=== PATIENT | female | born 1950 | race Caucasian/White ===

== ENCOUNTER 2024-08-12 06:48 | Inpatient (IN) | payer OTHER ==
[~2024-08-12] VITALS: Ht 227.3 cm; Wt 93.5 kg
[~2024-08-12 06:48] MED LIST: PERCOT PO; TIZA4CAP PO
[2024-08-12] MEDS: ROPIVACAINE 0.5% (5MG/ML) 20ML AMPULE IJ ONE (07:45)
[2024-08-12] MEDS ORDERED: KETAMINE 50mg/ML 1ml syringe ONE (08:36)
[2024-08-12] MEDS ORDERED: MIDAZOLAM HCL 2MG/2ML 2ml VIAL (1mg/ml) ONE (08:36)
[2024-08-12] MEDS ORDERED: fentaNYL CITRATE 100 MCG/2 ML VL ONE (08:36)
[2024-08-12] MEDS: TETRACAINE 1% INJ 2 ML VIAL IJ ONE (08:43)
[2024-08-12] MEDS: ceFAZolin 2 GM/D5W100ml 100 ML IV ONE (08:50)
[2024-08-12] MEDS: TRANEXAMIC ACID 20 ML ONE (08:52)
[2024-08-12] MEDS: MINERAL OIL TOPICAL 10ml TOP ONE (09:30)
[2024-08-12] MEDS: CEFEPIME 1GM/ 50ML 50 ML IV ONE (09:45)
[2024-08-12] MEDS: ONDANSETRON HCL 4 MG/2 ML VIAL IV ONE ×2 (10:30→12:30)
[2024-08-12] MEDS ORDERED: HYDROmorphone HCL 2 MG/ML VL/or syr IV PRN ×2 (10:30)
[2024-08-12] MEDS: VANCOMYCIN HCL 1000 MG VL ONE (10:33)
[2024-08-12] MEDS ORDERED: ONDANSETRON HCL 4 MG/2 ML VIAL IV PRN (10:45)
[2024-08-12] MEDS ORDERED: PROPOFOL 10 MG/ML 20 ML IV ONE (10:49)
[2024-08-12] MEDS ORDERED: ONDANSETRON HCL 4 MG/2 ML VIAL ONE (10:56)
[2024-08-12 11:12] VITALS: PULSE 83; RESP 10; O2SAT 94
[2024-08-12] MEDS ORDERED: ceFAZolin 2 GM/D5W50ml 50 ML IV SCH (14:00)
[2024-08-12] MEDS: KETOROLAC TROMETH 30 MG/ML 1ML VIAL IV ONE (14:22)
[2024-08-12] MEDS: oxyCODONE ER 10 MG TAB PO ONE (15:28)
[2024-08-12] MEDS: ceFAZolin 1GM/50ML 100 ML IV ONE (16:24)
[2024-08-12] MEDS: ceFAZolin 2 GM/D5W50ml 50 ML IV SCH (16:26)
[2024-08-12] MEDS: SODIUM CHLORIDE 0.9% 1,000 ML IV SCH (19:30)
[2024-08-12 20:00] VITALS: RESP 18; O2SAT 92
[2024-08-12] MEDS: oxyCODONE HCL 5MG TAB PO PRN (21:25)
[2024-08-12] MEDS: PREGABALIN 25 MG CAP PO SCH (21:26)
[2024-08-12] MEDS: ACETAMINOPHEN 325 MG TAB PO SCH (23:39)
[2024-08-12] MEDS: KETOROLAC TROMETH 30 MG/ML 1ML VIAL IV SCH (23:41)
[2024-08-13] VITALS (8 sets, daily range): BP systolic 107–138; BP diastolic 45–73; PULSE 61–86; RESP 17–20; TEMP 97–98.7; O2SAT 91–100
[2024-08-13 07:56] LABS: Basophils # (auto) 0 10 ^3/uL (0-0.2); Basophils % (auto) 0.2 % (0.0-2.0); Eosinophils # (auto) 0 10 ^3/uL (0-0.8); Eosinophils % (auto) 0.3 % (0.0-7.0); Hematocrit 33.6 % (36.0-46.0); Hemoglobin 11.8 g/dL (12.2-16.2); Lymphocytes # (auto) 0.9 10 ^3/uL (0.4-5.4); Lymphocytes % (auto) 13.1 % (10.0-50.0); Mean Corpuscular Hemoglobin 32.4 pg (28.0-32.0); Mean Corpuscular Hgb Conc. 35.1 g/dL (32.0-36.0); Mean Corpuscular Volume 92.3 fL (80.0-100.0); Monocytes # (auto) 0.9 10 ^3/uL (0-1.3); Monocytes % (auto) 12.5 % (0.0-12.0); Neutrophils # (auto) 5.4 10 ^3/uL (1.6-8.6); Neutrophils % (auto) 73.9 % (37.0-80.0); Platelet Count (auto) 216 10^3/uL (140-450); Red Blood Cells 3.64 10^6/uL (4.0-5.20); Red Cell Distribution Width 14.2 % (11.8-14.3); White Blood Cell 7.2 10^3/uL (4.4-10.8)
[2024-08-13 08:09] LABS: Chloride 107 mmol/L (98-107); Potassium 3.5 mmol/L (3.5-5.1); Sodium 141 mmol/L (136-145)
[2024-08-13 08:10] LABS: Anion Gap 7 (5-15); Carbon Dioxide 27 mmol/L (20-30)
[2024-08-13 08:11] LABS: Calcium 9.2 mg/dL (8.7-10.4)
[2024-08-13 08:15] LABS: Glucose 105 mg/dL (74-106)
[2024-08-13 08:16] LABS: BUN/Creatinine Ratio 18.8 (10.0-20.0); Blood Urea Nitrogen 12 mg/dL (9-23)
[2024-08-13] MEDS: oxyCODONE HCL 5MG TAB PO PRN (08:52)
[2024-08-13] MEDS: APIXABAN 2.5 MG TAB PO SCH (09:01)
[2024-08-14 05:00] VITALS: BP 136/57; PULSE 84; RESP 21; TEMP 99.2; O2SAT 93
[2024-08-14 08:00] VITALS: O2SAT 100
[2024-08-14 11:42] VITALS: BP 151/59; PULSE 65; RESP 18; TEMP 97.8; O2SAT 96
[2024-08-14 11:45] VITALS: BP 139/68; PULSE 75; RESP 18; TEMP 98; O2SAT 94
[2024-08-14 15:17] VITALS: BP 139/68; PULSE 75; RESP 18; TEMP 98; O2SAT 94
[2024-08-14 17:00] VITALS: BP 134/63; PULSE 83; RESP 18; TEMP 98.3; O2SAT 96
== END 2024-08-14 17:25 | disposition home health service (06) | DRG 470 ==
LOC: SUR 06:48 → OVERFLOW 10:46 → WEST WING 18:23
PROVIDERS: ADMIT Orthopaedic Surgery; ATTEND Orthopaedic Surgery
PROC: 0SRB03Z Replacement of Left Hip Joint with Ceramic Synthetic Substitute, Open Approach (ICD-10-PCS; principal; 2024-08-12 08:52)
DX: M16.12 Unilateral primary osteoarthritis, left hip (principal); Z79.899 Other long term (current) drug therapy
CPT/HCPCS: 36415; 72170; 73501; 80048; 85025; 86850; 86900; 86901; 97110; 97116; 97163; 97530; G0378; J1885; J2250; J2405; J2704